=== PATIENT | female | born 1940 | race Caucasian/White ===

== ENCOUNTER 2016-09-06 15:14 | Observation (INO) ==
[2016-09-06 15:43] LABS: Basophils % 0.4 %; Eosinophils # 0.3 K/mcL (0.0-0.6); Hematocrit 41.5 % (35.3-44.9); Hemoglobin 13.4 g/dL (11.5-15.4); Immature Granulocytes % 0.6 % (0-4); Lymphocytes # 1.3 K/mcL (0.6-4.6); Lymphocytes % 19.1 %; Mean Corpuscular HGB Conc 32.3 g/dL (31.6-35.5); Mean Corpuscular Hemoglobin 29.4 pg (28.0-33.3); Mean Platelet Volume 11.1 fL (9.4-12.4); Monocytes # 0.5 K/mcL (0.0-1.3); Monocytes % 6.8 %; Neutrophils # 4.7 K/mcL (1.6-8.9); Platelet Count 213 K/mcL (140-400); Red Blood Count 4.56 M/mcL (3.82-4.97); Red Cell Distribution Width 14.3 % (11.5-14.5); Segmented Neutrophils % 69.1 %
[2016-09-06 15:48] LABS: Prothrombin Time 11.3 Seconds (9.4-12.1)
[2016-09-06 15:54] LABS: BUN/Creatinine Ratio 18 (6-26); Blood Urea Nitrogen 16 mg/dL (7-20); Calcium 10.3 mg/dL (8.6-10.8); Carbon Dioxide 26 mEq/L (19-29); Chloride 104 mEq/L (98-109); Glucose 110 mg/dL (70-99); Osmolality,Calculated 296 (280-300); Potassium 3.7 mEq/L (3.5-4.5); Sodium 142 mEq/L (136-145); eGFR For African Americans > 60 (> 60); eGFR For Non-African Americans > 60 (> 60)
--- NOTE | 2016-09-06 16:33 | Emergency Department Note ---
Disposition Clinical Impression: Blurred vision, right eye, Episodic lightheadedness, History of unsteady gait Pneumonia Qualifiers: Pneumonia type: due to unspecified organism Laterality: left Lung location: lower lobe of lung Qualified Code(s): J18.1 - Lobar pneumonia, unspecified organism Disposition: Admitted As Inpatient Condition: Good Referrals: Alejandro,Karolina Taylor CNP [Primary Care Provider] - Time of Disposition: 17:45 General Adult HPI - General Stated complaint: Dizziness, Blurred vision Time Seen by Provider: 09/06/16 15:17 Source: patient Limitations: no limitations Nursing Notes Reviewed: Yes Vital Signs Reviewed: Yes - History of Present Illness HPI Narrative: patient planning of one hour history of right eye blurriness as well as lightheadedness when she is walking. Also an unsteady gait. Denies any headaches. States this has happened several times over the past couple weeks but they have been short in duration. She cannot pinpoint an inciting factor other than they generally occur whenever she is ambulatory. The episodes do get better when she is laying at rest. She denies any pain. Pain Scale: 4 - Related Data Home Medications Medication Instructions Recorded Confirmed Albuterol Sulfate [Ventolin Hfa] 2 puff IH Q4H PRN 09/06/16 09/06/16 Budesonide/Formoterol 160/4.5 2 puff IH BIDR 09/06/16 09/06/16 [Symbicort 160/4.5] Lutein [Natural Lutein] 20 mg PO DAILY 09/06/16 09/06/16 Pantoprazole Sodium [Protonix] 40 mg PO DAILY 09/06/16 09/06/16 Simvastatin [Zocor] 80 mg PO HS 09/06/16 09/06/16 Previous Rx's Medication Instructions Recorded Aspirin Enteric Coated [Aspirin EC] 81 mg PO DAILY tablet. 01/18/16 Atenolol [Tenormin] 50 mg PO DAILY tablet 01/18/16 Clopidogrel [Plavix] 75 mg PO DAILY tablet 01/18/16 FLUoxetine HCl [Prozac] 20 mg PO DAILY capsule 01/18/16 Vitamin B Complex/Vit C/Vit E 1 each PO DAILY tablet 01/18/16 [Stresstab] hydroCHLOROthiazide 12.5 mg PO DAILY tablet 01/18/16 [Hydrochlorothiazide] Allergies Allergy/AdvReac Type Severity Reaction Status Date / Time No Known Allergies Allergy Verified 10/19/15 11:59 All systems ED: reviewed and negative except as stated. Constitutional: Denies: fever, chills Eyes: Reports: vision change (Distant blurry vision in right eye.). Denies: eye pain, eye discharge ENT ED: Reports: other (Clear rhinorrhea.) Cardiovascular: Denies: chest pain, palpitations, dyspnea on exertion, syncope Respiratory: Denies: cough, dyspnea, wheezes, hemoptysis Gastrointestinal: Denies: abdominal pain, nausea, vomiting, diarrhea, hematemesis, melena, hematochezia Genitourinary: Denies: urgency, dysuria, frequency, hematuria, dyspareunia Musculoskeletal: Denies: back pain, neck pain Integumentary: Denies: rash, abrasion Neurological: Reports: weakness (Lightheadedness), abnormal gait (Unsteady gait) . Denies: headache, numbness, paresthesias, confusion, vertigo (Denies the room spinning. Denies worsening of her lightheadedness with position changes or turning her head.) Past Medical History - Past Medical History Attestation: Yes The following information was validated with the patient. Medical history: Reports: arthritis, coronary artery disease, CVA, GERD, hyperlipidemia, hypertension Surgical history: Reports: orthopedic, other Psychiatric history: Reports: anxiety, depression GEM SETTER history: Reports: no GEM SETTER history - Social History Smoking Status: Never smoker Smokeless Tobacco Status: No Alcohol use: Reports: rarely Drug use: Reports: none Physical Exam - General Limitations: no limitations General appearance: alert, in no apparent distress - Head Head exam: atraumatic, normocephalic, normal inspection - Eye Eye exam: Present: normal appearance, PERRL, EOMI, other (Patient does have a horizontal and lateral nystagmus. She has normal vision guerra. No visual field deficits. Denies blurry vision on close exam.). Absent: scleral icterus - ENT ENT exam: normal exam, normal oropharynx, mucous membranes moist, normal external ear exam - Neck Neck exam: Present: normal inspection, full ROM, trachea midline. Absent: tenderness, meningismus, lymphadenopathy - Chest Chest inspection: Present: normal inspection, symmetric chest wall rise. Absent : tenderness, rash, abscess - Respiratory Respiratory exam: Present: normal lung sounds bilaterally. Absent: respiratory distress - Cardiovascular Cardiovascular exam: Present: regular rate, normal rhythm, normal heart sounds - Abdominal Exam Abdominal exam: Present: soft, Non-Tender, normal bowel sounds. Absent: tenderness, distention, guarding, rebound, rigidity, organomegaly - Extremities Exam Extremities exam: Present: normal inspection, full ROM, normal capillary refill , other (No neuro deficits. Strong movement in all 4 extremities.). Absent: tenderness, pedal edema - Back Exam Back exam: Present: normal inspection, full ROM. Absent: tenderness, CVA tenderness (R), CVA tenderness (L) - Neurological Exam Neurological exam: Present: alert, oriented X3, CN II-XII intact. Absent: motor sensory deficit - Psychiatric Psychiatric exam: Present: normal affect, normal mood - Skin Skin exam: Present: warm, dry, intact, normal color. Absent: rash, cyanosis, diaphoresis, erythema Course Course Narrative: Female patient brought to the emergency department with a 1 hour history of unsteady gait and blurry distance vision in her right eye. 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 She reports that the symptoms happened for a brief period of time over the past week however this time the symptoms have not resolved. The patient is alert and oriented 3 and in no distress. She is mentating appropriately. She has no neurologic deficits. She has full range of motion and strong strength in all 4 extremities. She can track with her eyes well however she does have a vertical and horizontal nystagmus. She reports rhinorrhea. She states everyone at her home has this currently. She also reports that earlier today she noticed her blood pressure was elevated at home. She is in the 150s systolic at this time. Her lung sounds are clear her heart sounds are normal and her abdomen is soft and nontender. Her pupils are reactive to light. She does not have any hemianopsia. Her peripheral vision is normal. Patient does have a history of prior CVA several years ago. She is also reporting that she fell approximately 3 weeks ago and struck her head. Has a loss of consciousness with that. She states she was not checked out for the fall. She is on anticoagulation. She takes Plavix and aspirin daily. We will get a head CT of the patient as well as basic lab workup and a chest x-ray. - Reevaluation(s) Reevaluation #1: Patient was reevaluated. She states that her lightheadedness as well as her blurry vision is resolved at this time. She is reporting that she has noticed that every time this begins as when she is up moving around. We are going to get an MRI patient's head due to her symptoms that are waxing and waning and now lasting longer. She also has a left lower lobe pneumonia. We will begin treatment with this with IV antibiotics. We plan to admit the patient to the hospital for her intermittent neurological symptoms as well as her pneumonia. On her head CT did show an old infarct. However there are no signs of new ischemia or bleeding. She does take aspirin and Plavix at home. She states she does not take her aspirin until evening and has not had it today. We will give her full dose aspirin she is here. Time: 16:47 - Consultations Consultation #1: Patient accepted by nurse practitioner Uzma and stable condition. Time: 17:38 Vital Signs Temperature 98.7 F 09/06/16 15:19 Pulse Rate 58 09/06/16 15:19 Respiratory Rate 16 09/06/16 15:19 Blood Pressure 159/96 09/06/16 15:19 O2 Sat by Pulse Oximetry 97 09/06/16 15:19 Temperature 98.7 F 09/06/16 15:19 Pulse Rate 58 09/06/16 17:13 Respiratory Rate 16 09/06/16 17:13 Blood Pressure 145/74 09/06/16 17:13 O2 Sat by Pulse Oximetry 97 09/06/16 17:13 Oxygen Delivery Oxygen Delivery Room Air Medical Decision Making - Medical Records Medical records reviewed: Yes I reviewed the patient's medical records. - Lab Data Lab results reviewed: Yes I reviewed the patient's lab results. Result diagrams: 09/06/16 15:34 09/06/16 15:34 Lab Results 09/06/16 09/06/16 09/06/16 Range/Units 15:34 15:34 15:34 WBC 6.8 (4.3-11.1) K/mcL RBC 4.56 (3.82-4.97) M/mcL Hgb 13.4 (11.5-15.4) g/dL Hct 41.5 (35.3-44.9) % MCV 91.0 (83.0-100.0) fL MCH 29.4 (28.0-33.3) pg MCHC 32.3 (31.6-35.5) g/dL RDW 14.3 (11.5-14.5) % Plt Count 213 (140-400) K/mcL MPV 11.1 (9.4-12.4) fL Immature Gran % 0.6 (0-4) % Seg Neutrophils % 69.1 % Lymphocytes % 19.1 % Monocytes % 6.8 % Eosinophils % 4.0 % Basophils % 0.4 % Neutrophils # 4.7 (1.6-8.9) K/mcL Lymphocytes # 1.3 (0.6-4.6) K/mcL Monocytes # 0.5 (0.0-1.3) K/mcL Eosinophils # 0.3 (0.0-0.6) K/mcL Basophils # 0.0 (0.0-0.2) K/mcL PT 11.3 (9.4-12.1) Seconds INR 1.0 Sodium 142 (136-145) mEq/L Potassium 3.7 (3.5-4.5) mEq/L Chloride 104 (98-109) mEq/L Carbon Dioxide 26 (19-29) mEq/L BUN 16 (7-20) mg/dL Creatinine 0.88 (0.57-1.11) mg/dL Est GFR ( Amer) > 60 (> 60) Est GFR (Non-Af Amer) > 60 (> 60) BUN/Creatinine Ratio 18 (6-26) Glucose 110 H (70-99) mg/dL Calculated Osmolality 296 (280-300) Calcium 10.3 (8.6-10.8) mg/dL Troponin I (0-0.03) ng/mL 09/06/16 Range/Units 15:34 WBC (4.3-11.1) K/mcL RBC (3.82-4.97) M/mcL Hgb (11.5-15.4) g/dL Hct (35.3-44.9) % MCV (83.0-100.0) fL MCH (28.0-33.3) pg MCHC (31.6-35.5) g/dL RDW (11.5-14.5) % Plt Count (140-400) K/mcL MPV (9.4-12.4) fL Immature Gran % (0-4) % Seg Neutrophils % % Lymphocytes % % Monocytes % % Eosinophils % % Basophils % % Neutrophils # (1.6-8.9) K/mcL Lymphocytes # (0.6-4.6) K/mcL Monocytes # (0.0-1.3) K/mcL Eosinophils # (0.0-0.6) K/mcL Basophils # (0.0-0.2) K/mcL PT (9.4-12.1) Seconds INR Sodium (136-145) mEq/L Potassium (3.5-4.5) mEq/L Chloride (98-109) mEq/L Carbon Dioxide (19-29) mEq/L BUN (7-20) mg/dL Creatinine (0.57-1.11) mg/dL Est GFR ( Amer) (> 60) Est GFR (Non-Af Amer) (> 60) BUN/Creatinine Ratio (6-26) Glucose (70-99) mg/dL Calculated Osmolality (280-300) Calcium (8.6-10.8) mg/dL Troponin I 0.00 (0-0.03) ng/mL - Radiology Data Radiology results reviewed: Yes I reviewed the patient's radiology results. Chest X-Ray 09/06/16 15:32 IMPRESSION: Left lower lobe pneumonia. Recommend follow-up imaging to confirm resolution. Cardiomegaly without evidence for edema D/ / Jefferson Rodríguez MD / Jefferson Rodríguez MD Interpreting Provider: Jefferson Rodríguez MD Head CT 09/06/16 15:32 IMPRESSION: No acute intracranial abnormality. Old left frontal lobe infarct D/ / Ronaldo Wilkinson MD / Ronaldo Wilkinson MD Interpreting Provider: Ronaldo Wilkinson MD - EKG Data EKG #1 EKG results narrative: Patient's EKG is interpreted by myself without benefit of formal cardiology interpretation showing a sinus bradycardia at [address] or T-wave changes are appreciated. There is no old EKG for comparison. Attestation Statement - Attestation Attestation: I personally interviewed and examined this patient and my medical decision- making was reviewed with the ED Resident Physician, Dr. Sales I agree with the documented findings, disposition and treatment plan as described except to the extent set forth below. Patient is a 76-year-old white female with a history of prior CVA, and multiple medical problems who presents to the emergency department today with a complaint of a one-hour history of transient lightheadedness as well as blurred vision in her right eye. 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 Patient states she is usually active and doing something at the time that the lightheadedness starts she should initially in a standing position with no recent positional changes. She states earlier in the week she was at [facility] in a garden area getting plants and felt lightheaded to the point that she had to sit down until the symptoms resolved. Patient states that it lasted for minutes and with no other associated symptoms. She had no blurred vision no acute neurologic changes no facial droop slurred speech extremity weakness or numbness. Patient states then she had another episode a few days ago very similar to the initial episode. Then today prior to arrival she went golfing with family member in about [address] she began experiencing some lightheadedness again which she states with rest goes away. She denies any symptoms of chest pain pressure or heaviness no shortness of breath no diaphoresis no nausea vomiting. She does not have any true vertigo spinning sensation and it is not worse with positional changes or head turning. The symptoms started very suddenly and acutely and then seemed to slowly resolve with rest. On arrival here to the emergency Department patient states the lightheadedness is much improved but she has been resting and she says she feels like her vision is also improved at this point in time. She denies any headache or tinnitus associated with these symptoms. I agree with patient's physical exam findings as documented. Patient's EKG showed no acute findings. Patient had an IV saline well-established placed on stock crane operator and pulse ox and was evaluated with labs, chest x-ray, and head CT. Surprisingly the chest x-ray does show a new left lower lobe pneumonia. On reevaluation of the patient and her serial neuro exams remained unchanged and currently she is asymptomatic with no blurred vision or current lightheadedness. NIH stroke scale on arrival equals 0. I asked the patient about any preceding respiratory symptoms cold or cough and she denies any symptoms outside of some fatigue. No ill contacts. At this time we went ahead and obtained blood cultures and started IV antibiotics and head CT was unremarkable with the exception of old changes from her prior stroke. At this time, unclear whether or not these transient lightheaded episodes could be due to an underlying pulmonary illness versus new neurologic symptoms for her first is cardiac etiology. At this time we recommended admission for further evaluation and clarification of the source of these episodes of near- syncope. Patient currently is hemodynamically stable, and asymptomatic at bedside.
[2016-09-06] MEDS ORDERED: Azithromycin 500 MG in D5% in Water 250 ML IVPB ONE (16:40)
[2016-09-06] MEDS ORDERED: Aspirin 81 MG TAB.CHEW PO ONE (16:48)
[2016-09-06] MEDS ORDERED: Acetaminophen 325 MG TABLET PO PRN (21:08)
[2016-09-06] MEDS ORDERED: *HR* HYDROcodone/Acet 5/325 mg TABLET PO PRN (21:08)
[2016-09-06] MEDS ORDERED: Naloxone 0.4 MG/ML INJ IVP PRN (21:08)
[2016-09-06] MEDS ORDERED: Ondansetron 4 MG/2 ML VIAL IVP PRN (21:08)
[2016-09-06] MEDS ORDERED: *HR* Morphine 2 MG/ML SYRINGE IVP PRN (21:08)
--- NOTE | 2016-09-06 21:20 | Internal Med History&Physical ---
<Tony Britt - Last Filed: 09/06/16 21:59> Date of Encounter: 09/06/16 Time of Encounter: 21:00 Assessment and Plan (1) History of CVA (cerebrovascular accident) Current visit: Yes Status: Suspected Assess: Mrs. Durham presents with chief complaint of blurry vision in right eye, lightheadedness, and unsteady gait which is more pronounced than usual. Patient reports similar episodes on and off but states they always resolve as this one did. Mrs. Durham denies chest pain, headache, weakness to extremities, loss of motor function, or SOB. Diagnosis for possible TIAs. Plan: Trend troponins x2 ESR and CRP ordered to assess for possible temporal arteritis EV echocardiogram ordered Continue aspirin Continue Plavix Bilateral carotid Doppler duplex imaging ordered Continuous cardiac telemetry ordered D-dimer ordered stat Neurological assessment ordered Q2HR Falls precautions/bed rest/[id number]-[id number] ordered (2) Pneumonia Current visit: Yes Status: Acute Assess: Patient presents to ED today (09/06/16) with complaints of lightheadedness, unsteady gait, and blurry vision. Chest x-ray in ED shows left lower lobe pneumonia with recommended follow-up imaging to confirm resolution as well as cardiomegaly without evidence for edema. Plan: IVPB Azithromycin 500 mg daily ordered. First dose administered in ED. IVPB ceftriaxone 1,000 mg daily ordered. First dose administered in ED. Follow-up labs ordered Blood/urine cultures ordered Qualifiers: Pneumonia type: due to Pneumococcus Laterality: left Lung location: lower lobe of lung Qualified Code(s): J13 - Pneumonia due to Streptococcus pneumoniae (3) Blurred vision, right eye Current visit: Yes Status: Acute Assess: Patient presents with complaint of blurry vision in right eye without floaters, flashing lights, or total loss of vision. Patient reports symptoms have resolved as with previous incident. Plan: Neurological examination and eye exam performed at bed side unremarkable. Neurological assessment ordered Q2HR (4) Episodic lightheadedness Current visit: Yes Status: Acute Assess: Patient presents with complaint of episodic lightheadedness which is resolved as in previous incidents. Plan: Blood glucose monitoring to assess for hypoglycemic episodes A1C ordered Neurological assessment ordered every 2 hours Continuous cardiac telemetry ordered Falls precautions ordered Bedrest with bathroom privileges with assist only ordered Up with assist only PT consult ordered OT consult ordered Monitor patient (5) History of unsteady gait Current visit: Yes Status: Chronic Assess: Patient presents with complaint of history of unsteady gait. Plan: Blood glucose monitoring to assess for hypoglycemic episodes Neurological assessment ordered every 2 hours Falls precautions ordered Bedrest with bathroom privileges with assist only ordered Up with assist only PT consult ordered OT consult ordered Monitor patient (6) HTN (hypertension) Current visit: Yes Status: Chronic Assess: Patient presents with history of chronic hypertension. Plan: Continue hydrochlorothiazide Monitor patient and vital signs Qualifiers: Hypertension type: essential hypertension Qualified Code(s): I10 - Essential (primary) hypertension (7) Hyperlipidemia Current visit: Yes Status: Chronic Assess: Patient presents with history of chronic hyperlipidemia. Plan: Plan simvastatin Add Crestor 20 mg daily while inpatient Lipid panel ordered Qualifiers: Hyperlipidemia type: unspecified Qualified Code(s): E78.5 - Hyperlipidemia , unspecified (8) DVT prophylaxis Current visit: Yes Status: Acute Assess: Patient placed on DVT prophylaxis due to admission protocol and bedrest status. Plan: Continue aspirin therapy Lovenox 30 mg SQ daily Internal Medicine - H&P: HPI Chief complaint: Lightheadedness/blurry vision/unsteady gait Admitted From: Emergency Dept Plans for Post Hospital Care: Home History of present illness: Mrs. Durham is a 76 year old female who presents from the ED with chief complaint of blurry vision in right eye, lightheadedness, and unsteady gait which is more pronounced than usual. Patient reports similar episodes on and off but states they always resolve as this one did. Patient denies headache, chest pain, recent illness, generalized weakness, nausea, vomiting, diarrhea, shortness of breath with and without exertion, fatigue, or malaise. Patient has a history of arthritis, CAD, CVA in 1991, GERD, HLD, HTN, but denies diabetes although she feels she may become hypoglycemic at times. Upon examination in the ED today (09/06/16), chest x-ray reveals left lower lobe pneumonia with recommendation to follow-up with imaging to confirm resolution as well as cardiomegaly without evidence for edema. Patient is at moderate risk due to current risk factors of hyperlipidemia, hypertension, CAD, and previous CVA. Patient be placed his observation status with orders to trend troponins 2, ESR and CRP for possible temporal arteritis, continuous cardiac telemetry, supplemental O2 with SPO2 monitoring, EV echocardiogram, bilateral carotid Doppler duplex imaging, lipid panel, and A1c. We will hold patient's simvastatin and replaced with Crestor 20 mg while inpatient. Patient is to be placed his falls precautions, up with assist only, and bedrest with bathroom privileges with assist only. Blood glucose monitoring to be performed every 6 due to patient's concerns about hypoglycemia. Time spent with patient greater than 40 minutes. Past Med Surg Social Fam HX - Past Medical History Source: patient Medical history: arthritis, coronary artery disease, CVA, GERD, hyperlipidemia, hypertension Psychiatric history: anxiety, depression - Past Surgical History Surgical History: cholecystectomy, orthopedic, other (Meniscus repair of left knee, macular surgeries on left eye, sebaceous cyst removed from left chest) - Social History Smoking Status: Never smoker Smokeless Tobacco Status: No Alcohol use: rarely Drug use: none Occupational status: retired Current living situation: Home, With Family Activity Level: Independent ambulation Recent Out of Country Travel Within the Last 8 Weeks: No Exposure or Possible Exposure to Illness During Travel: No - Family History Father Race: Family Member Ethnicity: Non- Living Status: Age at : 82 Hx Family Cardiac Disorders: Yes (NC, HD) Hx Family Neurologic Disorders: Yes (Alzheimer's disease) Mother Race: Family Member Ethnicity: Non- Living Status: Age at : 74 Cause of : Stroke Hx Family Cardiac Disorders: Yes (Stroke, HD) Brother Race: Family Member Ethnicity: Non- Living Status: Age at : 39 Cause of : NC Hx Family Cardiac Disorders: Yes (NC) Sister Race: Family Member Ethnicity: Non- Living Status: Still Living Hx Family Cardiac Disorders: Yes (HLD) Internal Medicine - H&P: Meds Aspirin Enteric Coated [Aspirin EC] 81 mg PO DAILY tablet. 01/18/16 [Rx] Atenolol [Tenormin] 50 mg PO DAILY tablet 01/18/16 [Rx] Clopidogrel [Plavix] 75 mg PO DAILY tablet 01/18/16 [Rx] FLUoxetine HCl [Prozac] 20 mg PO DAILY capsule 01/18/16 [Rx] Vitamin B Complex/Vit C/Vit E [Stresstab] 1 each PO DAILY tablet 01/18/16 [Rx] hydroCHLOROthiazide [Hydrochlorothiazide] 12.5 mg PO DAILY tablet 01/18/16 [Rx] Albuterol Sulfate [Ventolin Hfa] 2 puff IH Q4H PRN 09/06/16 [History] Budesonide/Formoterol 160/4.5 [Symbicort 160/4.5] 2 puff IH BIDR 09/06/16 [ History] Lutein [Natural Lutein] 20 mg PO DAILY 09/06/16 [History] Pantoprazole Sodium [Protonix] 40 mg PO DAILY 09/06/16 [History] Simvastatin [Zocor] 80 mg PO HS 09/06/16 [History] Allergies No Known Allergies Allergy (Verified 10/19/15 11:59) All Systems PM: A 10-system review of systems was performed and is negative for pertinent findings except as documented above in the HPI. - Constitutional Constitutional: no chills, no fever(s), no night sweats - EENT Eyes: as per HPI, blurry vision (Right eye) Ears: no ear discharge, no ear pain, no tinnitus Nose, mouth and throat: no dysphagia, no nasal discharge, no neck pain, no sore throat - Cardiovascular Cardiovascular ROS IM: as per HPI, lightheadedness, no chest pain, no diaphoresis, no dyspnea, no palpitations, no syncope - Respiratory Respiratory: no cough, no dyspnea, no wheezing, no excessive phlegm production - Gastrointestinal Gastrointestinal: no abdominal pain, no diarrhea, no hematemesis, no hematochezia, no melena, no nausea, no vomiting - Genitourinary Genitourinary: as per HPI Menstruation: as per HPI - Musculoskeletal Musculoskeletal ROS IM: no numbness, no tingling - Integumentary Integumentary IM: no rash, no unusual bruising - Neurological Neurological ROS: as per HPI, abnormal gait, dizziness, loss of vision ( Blurriness in right eye w/o loss of vision), no confusion, no convulsions, no focal weakness, no numbness, no tingling, no tremor(s) - Psychiatric Psychiatric: as per HPI - Endocrine Endocrine IM: as per HPI - Hematologic/Lymphatic Hematologic/Lymphatic: no easy bruising - Allergic/Immunologic Allergic/Immunologic: as per HPI - Constitutional Vitals: Temp Pulse Resp BP Pulse Ox 97.7 F 55 18 149/96 98 09/06/16 20:52 06/20/17 20:52 09/06/16 20:52 09/06/16 20:52 09/06/16 20:52 General appearance: Present: cooperative, A&O X 3, pleasant, no acute distress, obese, answers questions appropriately - Head Head exam: Present: atraumatic, normocephalic - Eye Eye exam: Present: PERRL, conjuntiva pink, sclera anicteric Pupils: Present: PERRL - ENT ENT exam: Present: normal exam, normal external ear exam - Neck Neck exam general surgery: Present: supple, trachea midline. Absent: lymphadenopathy - Respiratory Respiratory exam: Present: CTAB. Absent: accessory muscle use, rales, rhonchi, wheezes - Cardiovascular Cardiovascular exam: Present: RRR, +S1, +S2. Absent: diastolic murmur, gallop, rubs, systolic murmur - GI/Abdominal GI/Abdominal exam: Present: normal bowel sounds, soft, no peritoneal signs. Absent: distended, tenderness - Rectal Rectal exam: Present: deferred - Additional comments: exam deferred. - Extremities Exam Extremities exam: Present: warm, radial pulses palpable and symetrical. Absent : calf tenderness, cyanotic, pedal edema - Back Exam Back exam: Present: normal inspection - Neurological Exam Neurological exam: Present: CN II-XII intact, oriented X3, no focal deficits. Absent: pronater drift, facial droop, speech deficit - Psychiatric Psychiatric exam: Present: normal affect, normal mood - Skin Skin exam: Present: dry, intact Internal Med - H&P Results - Labs CBC & Chem 7: 09/06/16 15:34 09/06/16 15:34 - EKG Data EKG shows normal: sinus rhythm Rate: bradycardia - EKG Data Prior EKG available for review: no - Diagnostic Studies MRI - head Additional comments: Impressions Brain MRI 09/06/16 16:35 IMPRESSION: 1. No acute intracranial abnormality. 2. Mild chronic white matter microvascular ischemic changes. 3. Remote high paramedian left frontal infarct in the left anterior cerebral artery territory. D/ / Faizan Johnson MD / Faizan Johnson MD Interpreting Provider: Faizan Johnson MD CT scan - head Additional comments: Impressions Head CT 09/06/16 15:32 IMPRESSION: No acute intracranial abnormality. Old left frontal lobe infarct D/ / Ronaldo Wilkinson MD / Ronaldo Wilkinson MD Interpreting Provider: Ronaldo Wilkinson MD Chest x-ray Additional comments: Impressions Chest X-Ray 09/06/16 15:32 IMPRESSION: Left lower lobe pneumonia. Recommend follow-up imaging to confirm resolution. Cardiomegaly without evidence for edema D/ / Jefferson Rodríguez MD / Jefferson Rodríguez MD Interpreting Provider: Jefferson Rodríguez MD <Bruno Mohr - Last Filed: 09/06/16 22:44> Date of Encounter: 09/06/16 Internal Medicine - H&P: HPI History of present illness: Ms. Durham is a 76 year old female All Systems PM: A 10-system review of systems was performed and is negative for pertinent findings except as documented above in the HPI. - Constitutional Vitals: Temp Pulse Resp BP Pulse Ox 97.7 F 55 20 149/96 86 09/06/16 20:52 09/06/16 20:52 09/06/16 22:01 09/06/16 20:52 09/06/16 22:01 Internal Med - H&P Results - Labs CBC & Chem 7: 09/06/16 15:34 09/06/16 15:34 Labs: Cardiac Enzymes 09/06/16 Range/Units 21:47 Troponin I 0.01 (0-0.03) ng/mL - Attending Attestation I examined this patient and my medical decision-making was reviewed with the DREDGE PIPE OPERATOR/PA/Advanced Practice Nurse/Resident Physician. I agree with the documented findings, disposition and treatment plan as described except to the extent set forth below. 76-year-old female presents to the emergency department due to one- week history of intermittent dizziness which she describes as a sensation of feeling out of balance. This started getting worse today and hence, she presented to the emergency room. She also reports a one-month history of stumbling where she states that she has been running into things it is unusual for her. She feels like the loss of balance is more towards the right side. She denies any ringing in her years, pain in her ears or sore throat. She denies any headache. She reports some nausea that she developed after receiving antibiotics in the emergency room. She denies any shortness of breath , cough, sputum production, wheezing, fever, chills, chest pain or palpitations. On exam, patient has horizontal nystagmus in both her eyes. Power is 5/5 all over. Finger nose finger test is intact. No dysdiadochokinesia. Clear breath sounds bilaterally. No adventitious sounds present. First and second heart sounds present. Labs reviewed. MRI does not reveal any acute infarct. It reveals an old left frontal lobe infarct. Vertigo was reproducible when the patient was made to sit up. Assessment/plan: 1. Vertigo-suspect TIA. Will request neurology consult. Echocardiogram and carotid Dopplers. Aspirin, Plavix and statin. 2. Patient does not have pneumonia-patient does not have fever, chills, shortness of breath, cough or wheezing. Clear breath sounds bilaterally. We will hold off antibiotics and monitor the patient. 3. Prior history of CVA. RAFAL Ríos
[2016-09-06 21:29] LABS: C-Reactive Protein 1 mg/L (Less than 5)
[2016-09-06 21:41] LABS: Hemoglobin A1C 5.9 %
[2016-09-06] MEDS: Budesonide/Formoterol 160/4.5 MDI IH SCH (22:01)
[2016-09-07 05:16] LABS: Bilirubin,Urine Negative (Negative); Blood,Urine Negative (Negative); Clarity,Urine Clear (Clear); Color,Urine Yellow (Yellow); Glucose,Urine (UA) Normal (Normal); Ketones,Urine Negative (Negative); Leukocyte Esterase,Urine Small (Negative); Nitrite,Urine Negative (Negative); Protein,Urine Negative (Neg-Trace); Specific Gravity,Urine 1.021 (1.010-1.025); Urobilinogen,Urine Normal (Normal)
[2016-09-07 05:19] LABS: Bacteria,Urine None Seen per hpf (None-Few); Hyaline Casts,Urine None Seen per lpf (None-Few); Squamous Epithelial Cell,Urine Many per lpf (None-Few)
[2016-09-07] MEDS: *HR* Enoxaparin 40 MG/0.4 ML SYRINGE SQ SCH (05:40)
[2016-09-07 07:26] LABS: Basophils % 0.3 %; Eosinophils # 0.3 K/mcL (0.0-0.6); Eosinophils % 4.1 %; Hematocrit 40.2 % (35.3-44.9); Hemoglobin 12.9 g/dL (11.5-15.4); Immature Granulocytes % 0.4 % (0-4); Lymphocytes # 1.6 K/mcL (0.6-4.6); Lymphocytes % 21.6 %; Mean Corpuscular HGB Conc 32.1 g/dL (31.6-35.5); Mean Corpuscular Hemoglobin 29.8 pg (28.0-33.3); Mean Corpuscular Volume 92.8 fL (83.0-100.0); Mean Platelet Volume 11.9 fL (9.4-12.4); Monocytes # 0.5 K/mcL (0.0-1.3); Monocytes % 6.5 %; Neutrophils # 5.1 K/mcL (1.6-8.9); Platelet Count 194 K/mcL (140-400); Red Blood Count 4.33 M/mcL (3.82-4.97); Red Cell Distribution Width 14.4 % (11.5-14.5); Segmented Neutrophils % 67.1 %
[2016-09-07 07:28] LABS: INR 1.1; Prothrombin Time 11.9 Seconds (9.4-12.1)
[2016-09-07 07:31] LABS: Activated Partial Thrombo Time 27.1 Seconds (26.0-36.0)
[2016-09-07 07:49] LABS: Alanine Aminotransferase 12 Units/L (0-55); Albumin 3.7 g/dL (3.5-5.0); Albumin/Globulin Ratio 1.3 (1.1-2.2); Alkaline Phosphatase 71 Units/L (38-126); Aspartate Amino Transferase 20 Units/L (5-34); BUN/Creatinine Ratio 13 (6-26); Bilirubin,Total 1.2 mg/dL (0.2-1.2); Blood Urea Nitrogen 12 mg/dL (7-20); Calcium 9.8 mg/dL (8.6-10.8); Carbon Dioxide 31 mEq/L (19-29); Chloride 102 mEq/L (98-109); Chol/HDL Ratio 2.9 (0-4.9); Cholesterol 174 mg/dL (< 200); Globulin 2.8 g/dL (2.4-3.5); Glucose 94 mg/dL (70-99); HDL Cholesterol 61 mg/dL (40-59); LDL Cholesterol,Calculated 87 mg/dL (0-99); Magnesium 1.5 mg/dL (1.6-2.6); Osmolality,Calculated 292 (280-300); Potassium 3.6 mEq/L (3.5-4.5); Sodium 141 mEq/L (136-145); Total Protein 6.5 g/dL (6.0-8.3); Triglycerides 129 mg/dL (< 150); eGFR For African Americans > 60 (> 60); eGFR For Non-African Americans > 60 (> 60)
[2016-09-07] MEDS: (Lutein [Natural Lutein] 20 MG) PO SCH (08:06)
[2016-09-07] MEDS: Aspirin Enteric Coated 81 MG Tablet PO SCH (08:07)
[2016-09-07] MEDS: FLUoxetine 20 MG CAPSULE PO SCH (08:07)
[2016-09-07] MEDS: Vitamin B Complex/Vit C/Vit E 1 EACH TABLET PO SCH (08:07)
[2016-09-07] MEDS: Budesonide/Formoterol 160/4.5 MDI IH SCH ×2 (08:57→19:54)
[2016-09-07] MEDS ORDERED: hydroCHLOROthiazide 25 MG TABLET PO SCH (09:00)
[2016-09-07] MEDS ORDERED: Pantoprazole 40 MG VIAL IVP SCH (09:00)
--- NOTE | 2016-09-07 11:13 | Neurology - Consult Note ---
<Lloyd Porter - Last Filed: 09/07/16 10:55> Date of Encounter: 09/07/16 Time of Encounter: 10:30 Assessment and Plan (1) CVA (cerebral vascular accident) Current Visit: Yes Status: Acute Patient has mild right-sided weakness. Per patient she states her weakness is better today than it was 1 day ago. Patient's blurred vision resolved. No sense of vertigo or lightheadedness at time of exam. Patient states she still has a headache. High possibility of CVA given MRI results Head CT 09/06/16 15:32 IMPRESSION: No acute intracranial abnormality. Old left frontal lobe infarct D/ / Ronaldo Wilkinson MD / Ronaldo Wilkinson MD Interpreting Provider: Ronaldo Wilkinson MD Brain MRI 09/06/16 16:35 IMPRESSION: 1. No acute intracranial abnormality. 2. Mild chronic white matter microvascular ischemic changes. 3. Remote high paramedian left frontal infarct in the left anterior cerebral artery territory. D/ / Faizan Johnson MD / Faizan Johnson MD Interpreting Provider: Faizan Johnson MD Patient had carotid Doppler today. Awaiting results: Recommendations follow History of Present Illness Chief complaint: Lightheadedness and blurred vision HPI: Ms. Durham is a 76 year old female with a past medical history for CAD, CVA back in 1991, actually, HTN, GERD. Consults for vertigo and blurred vision. Patient states that yesterday she had change in vision blurriness and lightheadedness but the patient denies any sense of room spinning. Patient also states that she noticed drifting to the right with walking. Patient's at bedside also noticed right-sided drift with walking. Patient states just felt weak with lightheadedness and also has onset of headache left frontal area of her head, and her stated that she usually will have these episodes at times but will resolve with food. He attributed to being hypoglycemic. After eating, symptoms did not resolve. Upon further investigation patient's said she fell and hit her head and upper frontal area near her hairline on a rock while out doing some hiking. They both denied loss of consciousness and any other injuries. Patient is on Plavix. Today the patient states that her visual acuity has improved and she can see clearly now. Patient states that she has chronic issue with the right pupil and only has peripheral vision in the right eye. Patient states her headache is still present in the area previously described. Patient describes headache as dull aching pain left frontal area with radiation around to the right extending to the back and back of the left side to the front. Past Med Surg Social Fam HX - Past Medical History Attestation: Yes The following information was validated with the patient. Source: patient Medical history: arthritis, coronary artery disease, CVA, GERD, hyperlipidemia, hypertension Psychiatric history: anxiety, depression - Past Surgical History Surgical History: cholecystectomy, orthopedic, other (Meniscus repair of left knee, macular surgeries on left eye, sebaceous cyst removed from left chest) - Social History Smoking Status: Never smoker Smokeless Tobacco Status: No Alcohol use: rarely Drug use: none - Family History Mother Race: Family Member Ethnicity: Non- Living Status: Age at : 74 Cause of : Stroke Hx Family Cardiac Disorders: Yes (Stroke, HD) Brother Race: Family Member Ethnicity: Non- Living Status: Age at : 39 Cause of : [place] Hx Family Cardiac Disorders: Yes ([place]) Sister Race: Family Member Ethnicity: Non- Living Status: Still Living Hx Family Cardiac Disorders: Yes (HLD) Father Race: Family Member Ethnicity: Non- Living Status: Age at : 82 Hx Family Cardiac Disorders: Yes ([place], HD) Hx Family Neurologic Disorders: Yes (Alzheimer's disease) Medications and Allergies Aspirin Enteric Coated [Aspirin EC] 81 mg PO DAILY tablet. 01/18/16 [Rx] Atenolol [Tenormin] 50 mg PO DAILY tablet 01/18/16 [Rx] Clopidogrel [Plavix] 75 mg PO DAILY tablet 01/18/16 [Rx] FLUoxetine HCl [Prozac] 20 mg PO DAILY capsule 01/18/16 [Rx] Vitamin B Complex/Vit C/Vit E [Stresstab] 1 each PO DAILY tablet 01/18/16 [Rx] hydroCHLOROthiazide [Hydrochlorothiazide] 12.5 mg PO DAILY tablet 01/18/16 [Rx] Albuterol Sulfate [Ventolin Hfa] 2 puff IH Q4H PRN 09/06/16 [History] Budesonide/Formoterol 160/4.5 [Symbicort 160/4.5] 2 puff IH BIDR 09/06/16 [ History] Lutein [Natural Lutein] 20 mg PO DAILY 09/06/16 [History] Pantoprazole Sodium [Protonix] 40 mg PO DAILY 09/06/16 [History] Simvastatin [Zocor] 80 mg PO HS 09/06/16 [History] Allergies No Known Allergies Allergy (Verified 10/19/15 11:59) All Systems: A 10-system review of systems was performed and is negative for pertinent findings except as documented above in the HPI. - Constitutional Constitutional ROS IM: headache(s), weakness, no frequent falls - Eyes Eyes: bilateral: blurred vision - Nose, Mouth, Throat Nose, mouth and throat: disequilibrium - Cardiovascular Cardiovascular ROS IM: dyspnea on exertion (Chronic), lightheadedness, no chest pain, no chest pain at rest, no chest pain with activity - Respiratory Respiratory IM: no cough, no hemoptysis, no wheezing, no chest congestion - Gastrointestinal Gastrointestinal: no abdominal pain, no change in bowel habits, no hematemesis, no hematochezia, no melena, no nausea - Genitourinary Genitourinary ROS: no dysuria, no flank pain, no hematuria, no urinary incontinence - Musculoskeletal Musculoskeletal ROS IM: abnormal gait - Integumentary Integumentary IM: no photosensitivity, no unusual bruising, no wounds - Neurological Neurological ROS: abnormal gait, abnormal speech (From prior CVA), headache(s) - Hematologic/Lymphatic Hematologic/Lymphatic pediatric: no easy bleeding, no easy bruising Physical Examination - Vital Signs Vital Signs: Initial Vital Signs Temp Pulse Resp BP Pulse Ox 98.7 F 58 16 159/96 97 09/06/16 15:19 09/06/16 15:19 09/06/16 15:19 09/06/16 15:19 09/06/16 15:19 - Exam Exam: -General Appearance: Patient is a safe 76-year-old female who is alert and oriented 3 and in no acute distress. Patient appears very comfortable on the pleasant to converse with. Patient has no verbalizations, no facial drooping, no dysarthric speech -Neurological exam: Cranial nerves III-XII intact, no focal deficits observed, strength is slightly diminished on the right side upper and lower extremity with lower extremity weakness greater than upper extremity. 4/5 right lower extremity compared to 5/5 left lower extremity 4.5/5 right upper extremity versus 5/5 left upper extremity, cerebellar motion test negative patient and perform alternating movements with right hand and left and left hand and right, patient able to perform finger to nose and alternating movements both arms. Sensation equal bilaterally in upper and lower extremities and face. Reflexes upper and lower extremities 2/4 bilaterally. Negative loss of sensation. positive Babinski right foot. - Head Head exam: atraumatic, normocephalic, normal inspection - Eye Eye exam: Present: normal appearance, PERRL, EOMI, negative for scleral icterus negative for conjunctival pallor - ENT ENT exam: normal exam, normal oropharynx, mucous membranes moist - Neck Neck exam: Present: normal inspection, full ROM, trachea midline, negative JVD, negative for carotid bruit - Chest Chest inspection: Present: Patient has bilateral equal rise and fall of chest wall. Non-tender to palpation. - Respiratory Respiratory exam: Clear to auscultation bilaterally without wheezes rales or rhonchi Cardiovascular Cardiovascular exam: Present: regular rate, normal rhythm, normal heart sounds, without murmurs rubs or gallops. - Abdominal Exam Abdominal exam: Present: soft, nondistended, Non-Tender light and deep palpation in all quadrants. Bowel sounds normoactive throughout all 4 quadrants. Negative for hyper or hyperresonance. - Extremities Exam Extremities exam: Present: normal inspection, full ROM, pulses equal and regular bilaterally 2+ radials 2+ dorsal pedal - Back Exam Back exam: Present: normal inspection, full ROM. Absent: tenderness, CVA tenderness (R), CVA tenderness (L) - Psychiatric Psychiatric exam: Present: normal affect, normal mood - Skin Skin exam: Present: warm, dry, intact, normal color - Neurologic Reflexes: Biceps: 2+, Triceps: 2+, Brachioradialis: 2+, Patella: 2+, Achilles: 2 + Results - Laboratory Findings CBC and BMP: 09/07/16 05:56 09/07/16 05:56 Abnormal lab findings: Abnormal lab results ESR 20 mm/hr (0-15) H 09/06/16 15:34 Carbon Dioxide 31 mEq/L (19-29) H 09/07/16 05:56 POC Glucose 108 (58-89) H 09/06/16 15:22 Hemoglobin A1c 5.9 % (-5.6) H 09/06/16 15:34 Magnesium 1.5 mg/dL (1.6-2.6) L 09/07/16 05:56 B-Natriuretic Peptide 220 pg/mL (0-100) H 09/07/16 05:56 HDL Cholesterol 61 mg/dL (40-59) H 09/07/16 05:56 Ur Leukocyte Esterase Small (Negative) H 09/07/16 05:05 Urine Microscopic RBC 5-15 per hpf (0-3) H 09/07/16 05:05 Urine Microscopic WBC 3-5 per hpf (0-3) H 09/07/16 05:05 Ur Squamous Epith Cells Many per lpf (None-Few) H 09/07/16 05:05 Ur Culture Indicated? YES (NO) A 09/07/16 05:05 - Diagnostic Findings Additional findings: Chest X-Ray 09/06/16 15:32 IMPRESSION: Left lower lobe pneumonia. Recommend follow-up imaging to confirm resolution. Cardiomegaly without evidence for edema D/ / Jefferson Rodríguez MD / Jefferson Rodríguez MD Interpreting Provider: Jefferson Rodríguez MD Head CT 09/06/16 15:32 IMPRESSION: No acute intracranial abnormality. Old left frontal lobe infarct D/ / Ronaldo Wilkinson MD / Ronaldo Wilkinson MD Interpreting Provider: Ronaldo Wilkinson MD Brain MRI 09/06/16 16:35 IMPRESSION: 1. No acute intracranial abnormality. 2. Mild chronic white matter microvascular ischemic changes. 3. Remote high paramedian left frontal infarct in the left anterior cerebral artery territory. 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 Considerations to explain this might include presyncope, VBI, perhaps a primary ocular event involving the right eye. I would recommend CTA of the brain to assess for VBI. I don't believe that the findings idntified on the carotid doppler are pertinent here as she didn't have any localizing signs initially. 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 Risk factors include hypertension, HLD, and age. Maintain plavix, statins and antihypertensives. History of Present Illness HPI: Ms. Durham is a 76 year old female ho was seen for neurologic consultasual changes. She stated that she had been out golfing with her when the She states that it was not excessively hot at the time. She simply felt "dizzy" and complained of blurred vision. She has a long-standing problem with in her left eye due to macular degeneration. the entire episodes lasted for about 12 hours. she denies diplopia, denies diaphoresis, she admits to lightheadedness she denies feeling excessively hot. She denied headache. Denied nausea. She denies any numbness tingling or weakness of the face, arms or legs. She denies chest pain or SOB. Currently she feels back to her normal baseline. All Systems: A 10-system review of systems was performed and is negative for pertinent findings except as documented above in the HPI. Review of Systems: 10 point ROS is consistent with the hx of present illness and otherwise negative. Physical Examination - Vital Signs Vital Signs: Initial Vital Signs Temp Pulse Resp BP Pulse Ox 98.7 F 58 16 159/96 97 09/06/16 15:19 09/06/16 15:19 09/06/16 15:19 09/06/16 15:19 09/06/16 15:19 - Exam Exam: patient was seen and examined independently I agree with Dr. Porter's exam as stated above. Results - Laboratory Findings CBC and BMP: 09/08/16 04:22 09/08/16 04:22 Abnormal lab findings: Abnormal lab results MCHC 31.2 g/dL (31.6-35.5) L 09/08/16 04:22 ESR 20 mm/hr (0-15) H 09/06/16 15:34 Potassium 3.4 mEq/L (3.5-4.5) L 09/08/16 04:22 POC Glucose 108 (58-89) H 09/06/16 15:22 Hemoglobin A1c 5.9 % (-5.6) H 09/06/16 15:34 Magnesium 1.5 mg/dL (1.6-2.6) L 09/07/16 05:56 B-Natriuretic Peptide 220 pg/mL (0-100) H 09/07/16 05:56 HDL Cholesterol 61 mg/dL (40-59) H 09/07/16 05:56 Ur Leukocyte Esterase Small (Negative) H 09/07/16 05:05 Urine Microscopic RBC 5-15 per hpf (0-3) H 09/07/16 05:05 Urine Microscopic WBC 3-5 per hpf (0-3) H 09/07/16 05:05 Ur Squamous Epith Cells Many per lpf (None-Few) H 09/07/16 05:05 Ur Culture Indicated? YES (NO) A 09/07/16 05:05
[2016-09-07] MEDS ORDERED: Magnesium Sulfate 2 GM in D5% in Water 100 ML IVPB ONE (12:03)
--- NOTE | 2016-09-07 14:22 | Electrocardiograph Report ---
[address] [address] Test Date: 2016-09-06 Pat Name: Arcelia Durham Department: 102 Room: 3A45 Gender: F Lpn Rn: : 1940 Requested By: Beatris Sales Order Number: [id number] Reading MD: Stephan Cuellar MD Measurements Intervals Eads Rate: 56 P: 48 HI: 166 QRS: 11 QRSD: 92 T: 8 QT: 418 QTc: 411 Interpretive Statements SINUS BRADYCARDIA Electronically Signed On 09-07-2016 14:20:59 EDT by Stephan Cuellar MD
--- NOTE | 2016-09-07 16:44 | Internal Med Progress Note ---
Date of Encounter: 09/07/16 Time of Encounter: 16:42 - Subjective Interval history: Ms. Durham is a 76 year old female with a past medical history for CAD, CVA back in 1991, actually, HTN, GERD presented with a blurred vision dizziness and right -sided weakness. Symptoms seems to be improving at this point. MRI of the brain is negative for any acute infarct, but did show a remote left frontal is infarct. Echocardiogram showed normal cardiac ejection fraction with normal LV systolic function without any significant wall motion abnormality. Neurology is on this case. sHe takes Plavix at home and aspirin has been added. Patient to magnesium was low which is supplemented. Chest x-ray showed possible pneumonia the patient is asymptomatic and UA shows some leukocytes. I will continue patient with IV Rocephin. has history of prosthetic aortic valve INR is 4.2. Will bring it on and a 3.5. - Constitutional Vitals: Temp Pulse Resp BP Pulse Ox 98.2 F 57 14 125/72 96 09/07/16 15:03 09/07/16 15:15 09/07/16 15:15 09/07/16 15:15 09/07/16 15:15 General appearance: Present: cooperative, A&O X 3, pleasant, no acute distress, obese, answers questions appropriately - Head Head exam: Present: atraumatic, normocephalic - Eye Eye exam: Present: PERRL, conjuntiva pink, sclera anicteric Pupils: Present: PERRL - Neck Neck exam general surgery: Present: supple, trachea midline. Absent: lymphadenopathy - Respiratory Respiratory exam: Present: CTAB. Absent: accessory muscle use, rales, rhonchi, wheezes - Cardiovascular Cardiovascular exam: Present: RRR, +S1, +S2. Absent: diastolic murmur, gallop, rubs, systolic murmur - GI/Abdominal GI/Abdominal exam: Present: normal bowel sounds, soft, no peritoneal signs. Absent: distended, tenderness - Extremities Exam Extremities exam: Present: warm, radial pulses palpable and symetrical. Absent : calf tenderness, cyanotic, pedal edema - Neurological Exam Neurological exam: Present: CN II-XII intact, oriented X3, no focal deficits. Absent: pronater drift, facial droop, speech deficit - Skin Skin exam: Present: dry, intact Additional comments: Mild right-sided distal weakness. Detailed examination of neurology Internal Medicine: Result - Labs CBC & Chem 7: 09/07/16 05:56 09/07/16 05:56 Labs: Short CBC 09/07/16 Range/Units 05:56 WBC 7.6 (4.3-11.1) K/mcL Hgb 12.9 (11.5-15.4) g/dL Hct 40.2 (35.3-44.9) % Plt Count 194 (140-400) K/mcL Neutrophils # 5.1 (1.6-8.9) K/mcL BMP 09/07/16 05:56 Sodium 141 Potassium 3.6 Chloride 102 Carbon Dioxide 31 H BUN 12 Creatinine 0.90 Glucose 94 Calcium 9.8 Cardiac Enzymes 09/06/16 09/07/16 Range/Units 21:47 05:56 Troponin I 0.01 0.02 (0-0.03) ng/mL Liver Function 09/07/16 Range/Units 05:56 Total Bilirubin 1.2 (0.2-1.2) mg/dL AST 20 (5-34) Units/L ALT 12 (0-55) Units/L Alkaline Phosphatase 71 (38-126) Units/L Albumin 3.7 (3.5-5.0) g/dL Urine 09/07/16 Range/Units 05:05 Urine Color Yellow (Yellow) Urine Clarity Clear (Clear) Urine pH 6.0 (5.0-8.0) pH Units Ur Specific [place] 1.021 (1.010-1.025) Urine Protein Negative (Neg-Trace) mg/dL Urine Glucose (UA) Normal (Normal) mg/dL - ABG Interpretation ABG results: PT/INR, D-dimer PT 11.9 Seconds (9.4-12.1) 09/07/16 05:56 D-Dimer 421 ng/mLFEU (0-500) 09/06/16 21:47 Consult Discharge Plan - Plan Referrals: Karolina Allen CNP [Primary Care Provider] - 09/15/16 11:00 am
[2016-09-07] MEDS ORDERED: Azithromycin 500 MG in D5% in Water 250 ML IVPB SCH (22:00)
[2016-09-08 05:16] LABS: Basophils % 0.3 %; Eosinophils # 0.5 K/mcL (0.0-0.6); Eosinophils % 7.9 %; Hematocrit 40.1 % (35.3-44.9); Hemoglobin 12.5 g/dL (11.5-15.4); Immature Granulocytes % 0.5 % (0-4); Lymphocytes # 1.7 K/mcL (0.6-4.6); Lymphocytes % 29.4 %; Mean Corpuscular HGB Conc 31.2 g/dL (31.6-35.5); Mean Corpuscular Hemoglobin 28.9 pg (28.0-33.3); Mean Corpuscular Volume 92.6 fL (83.0-100.0); Mean Platelet Volume 11.3 fL (9.4-12.4); Monocytes # 0.5 K/mcL (0.0-1.3); Monocytes % 7.9 %; Neutrophils # 3.1 K/mcL (1.6-8.9); Platelet Count 181 K/mcL (140-400); Red Blood Count 4.33 M/mcL (3.82-4.97); Red Cell Distribution Width 14.5 % (11.5-14.5)
[2016-09-08 05:35] LABS: Alanine Aminotransferase 11 Units/L (0-55); Albumin 3.5 g/dL (3.5-5.0); Albumin/Globulin Ratio 1.3 (1.1-2.2); Alkaline Phosphatase 64 Units/L (38-126); Aspartate Amino Transferase 20 Units/L (5-34); BUN/Creatinine Ratio 12 (6-26); Bilirubin,Total 1.2 mg/dL (0.2-1.2); Blood Urea Nitrogen 10 mg/dL (7-20); Calcium 9.7 mg/dL (8.6-10.8); Carbon Dioxide 29 mEq/L (19-29); Chloride 103 mEq/L (98-109); Globulin 2.7 g/dL (2.4-3.5); Glucose 96 mg/dL (70-99); Osmolality,Calculated 293 (280-300); Potassium 3.4 mEq/L (3.5-4.5); Sodium 142 mEq/L (136-145); Total Protein 6.2 g/dL (6.0-8.3); eGFR For African Americans > 60 (> 60); eGFR For Non-African Americans > 60 (> 60)
[2016-09-08] MEDS: *HR* Enoxaparin 40 MG/0.4 ML SYRINGE SQ SCH (06:19)
--- NOTE | 2016-09-08 07:12 | Carotid Imaging Report ---
Carotid Duplex Patient Name:Arcelia Durham Order Number:[id number] Procedure Date:09/07/2016 Date:3Age:76 yrs Gender:Female Lt BP:156 / 80 mmHg Rt.BP:150 / 76 mmHgHeart Rate: Location:[facility] Room #: 3A45 Taxi Driver:Suri Fay Referring MD:Tony Britt CNP clinical support specialist:Karolina Allen CNP Reading MD:Chung Sharp MD Risk Factors Yes/No Hypertension Yes Hypercholesterolemia Yes Smoker Previous Yes Impressions: The right internal carotid artery has a 60-79% stenosis. The left carotid artery bifurcation has a 60-79% stenosis. The left internal carotid artery has a 40-59% stenosis. Recommendations: Risk factor reduction. Further evaluation recommended if clinically indicated. Follow-up carotid duplex in 1 year. After imaging the patient returned to their room. Findings Carotid Duplex: Right: The right proximal common carotid artery has a PSV of 50 cm/s and a EDV of 13 cm/s. The right mid common carotid artery has a PSV of 57 cm/s and a EDV of 14 cm/s. The right distal common carotid artery has a PSV of 54 cm/s and a EDV of 14 cm/s. The right bifurcation has a PSV of 48 cm/s and a EDV of 15 cm/s. There is 60-79% stenosis in the right proximal internal carotid artery with a PSV of 179 cm/s and a EDV of 59 cm/s. There is irregular heterogeneous plaque. There is 40-59% stenosis in the right mid internal carotid artery with a PSV of 133 cm/s and a EDV of 32 cm/s. There is smooth heterogeneous plaque. The right distal internal carotid artery has a PSV of 73 cm/s and a EDV of 22 cm/s. The right eca has a PSV of 55 cm/s and a EDV of 8 cm/s. The right vertebral artery has a PSV of 45 cm/s and a EDV of 11 cm/s. Left: The left proximal common carotid artery has a PSV of 89 cm/s and a EDV of 25 cm/s. The left mid common carotid artery has a PSV of 87 cm/s and a EDV of 22 cm/s. The left distal common carotid artery has a PSV of 95 cm/s and a EDV of 27 cm/s. There is 60-79% stenosis in the left bifurcation with a PSV of 140 cm/s and a EDV of 48 cm/s. There is irregular heterogeneous plaque. There is 40-59% stenosis in the left proximal internal carotid artery with a PSV of 154 cm/s and a EDV of 39 cm/s. There is smooth heterogeneous plaque. There is nonstenotic plaque in the left mid internal carotid artery with a PSV of 81 cm/s and a EDV of 27 cm/s. There is smooth heterogeneous plaque. The left distal internal carotid artery has a PSV of 101 cm/s and a EDV of 35 cm/s. The left eca has a PSV of 102 cm/s and a EDV of 25 cm/s. The left vertebral artery has a PSV of 55 cm/s and a EDV of 13 cm/s. Carotid Results Right PSV EDV Assessment Proximal CCA 50 13 Normal Mid CCA 57 14 Normal Distal CCA 54 14 Normal Bifurcation 48 15 Normal Proximal ICA 179 59 60-79% stenosis Mid ICA 133 32 40-59% stenosis Distal ICA 73 22 Normal ECA 55 8 Normal Vertebral Artery 45 11 Normal Left PSV EDV Assessment Proximal CCA 89 25 Normal Mid CCA 87 22 Normal Distal CCA 95 27 Normal Bifurcation 140 48 60-79% stenosis Proximal ICA 154 39 40-59% stenosis Mid ICA 81 27 Non Stenotic Plaque Distal ICA 101 35 Normal ECA 102 25 Normal Vertebral Artery 55 13 Normal Ratio's Right ICA/CCA Ratio: 3.14 ICA/CCA Values: 179/57 Left ICA/CCA Ratio: 1.80 ICA/CCA Values: 154/87 Updated by Chung Sharp MD on 09/08/2016 7:07:56 AM electronically signed on 09/08/2016 7:08:24 AM with status of Final
[2016-09-08] MEDS: Aspirin Enteric Coated 81 MG Tablet PO SCH (07:53)
[2016-09-08] MEDS: FLUoxetine 20 MG CAPSULE PO SCH (07:53)
[2016-09-08] MEDS: Vitamin B Complex/Vit C/Vit E 1 EACH TABLET PO SCH (07:53)
[2016-09-08] MEDS: (Lutein [Natural Lutein] 20 MG) PO SCH (07:54)
[2016-09-08] MEDS: Budesonide/Formoterol 160/4.5 MDI IH SCH (09:36)
[2016-09-08 11:17] VITALS: BP 137/60
--- NOTE | 2016-09-08 13:54 | Discharge Summary ---
Date of Encounter: 09/08/16 Time of Encounter: 13:50 - Discharge Diagnosis (1) HTN (hypertension) Priority: Secondary Status: Chronic Qualifiers: Hypertension type: essential hypertension Qualified Code(s): I10 - Essential (primary) hypertension (2) Hyperlipidemia Priority: Secondary Status: Chronic Qualifiers: Hyperlipidemia type: unspecified Qualified Code(s): E78.5 - Hyperlipidemia , unspecified (3) Pneumonia Priority: Secondary Status: Acute Qualifiers: Pneumonia type: due to Pneumococcus Laterality: left Lung location: lower lobe of lung Qualified Code(s): J13 - Pneumonia due to Streptococcus pneumoniae (4) CVA (cerebral vascular accident) Priority: Primary Status: Acute Qualifiers: CVA mechanism: unspecified Qualified Code(s): I63.9 - Cerebral infarction, unspecified - Discharge Medications Prescriptions: Cefuroxime PO [Ceftin] 500 mg PO Q12HR #28 tablet Home Medications: Aspirin Enteric Coated [Aspirin EC] 81 mg PO DAILY tablet. 01/18/16 [Rx] Atenolol [Tenormin] 50 mg PO DAILY tablet 01/18/16 [Rx] Clopidogrel [Plavix] 75 mg PO DAILY tablet 01/18/16 [Rx] FLUoxetine HCl [Prozac] 20 mg PO DAILY capsule 01/18/16 [Rx] Vitamin B Complex/Vit C/Vit E [Stresstab] 1 each PO DAILY tablet 01/18/16 [Rx] hydroCHLOROthiazide [Hydrochlorothiazide] 12.5 mg PO DAILY tablet 01/18/16 [Rx] Albuterol Sulfate [Ventolin Hfa] 2 puff IH Q4H PRN 09/06/16 [History] Budesonide/Formoterol 160/4.5 [Symbicort 160/4.5] 2 puff IH BIDR 09/06/16 [ History] Lutein [Natural Lutein] 20 mg PO DAILY 09/06/16 [History] Pantoprazole Sodium [Protonix] 40 mg PO DAILY 09/06/16 [History] Simvastatin [Zocor] 80 mg PO HS 09/06/16 [History] Acetaminophen [Tylenol] 650 mg PO Q6HR PRN #0 tablet 09/08/16 [Rx] Cefuroxime PO [Ceftin] 500 mg PO Q12HR #28 tablet 09/08/16 [Rx] Rosuvastatin [Crestor] 20 mg PO HS tablet 09/08/16 [Rx] Allergies/Adverse Reactions: Allergies No Known Allergies Allergy (Verified 10/19/15 11:59) Procedures/tests Complete & Pending: Procedures Performed prior 72 hours Category Date Time Status EV carotid duplex imaging BI Stat Y 09/07/16 21:05 Completed EV echocardiogram Stat Y 09/07/16 21:04 Completed Date of admission: 09/06/16 18:06 Primary care physician: Karolina Allen CNP Consults: 09/06/16 21:11 Consult to Physical Therapy [CONS] Routine Comment: Evaluate, develop and implement POC Reason for Consult: Patient has history of CVA and episodes of dizziness and unsteady gait 09/06/16 21:12 Consult to Occupational Therapy [CONS] Routine Comment: Evaluate, develop and implement POC Reason for Consult: Patient has history of CVA and episodes of dizziness and unsteady gait 09/06/16 22:40 Consult to Neurology [CONS] Routine Consulting Provider: [facility] Reason for Consult: Vertigo Call Completed: No Discharging clinician: Jennie Lim Anticipated date of discharge: 09/08/16 - Patient Status Disposition: Home, Self-Care Overall status at discharge: patient is back to baseline - Discharge Instructions Follow Up With: Karolina Allen CNP [Primary Care Provider] - 09/15/16 11:00 am Forms: ED Satisfaction Letter - Diet and Activity Activity: increase activity as tolerated Diet: advance to your usual diet Interval History: Ms. Durham is a 76 year old female with a past medical history for CAD, CVA back in 1991, actually, HTN, GERD presented with a blurred vision dizziness and right -sided weakness. Symptoms seems to have resolved at this point. Patient does not have any blurring of vision or difficulty in vision and has strength on the right side has returned back to normal. Speech normal she tolerates full diet without any difficulty and he started ambulating. Usually feels woozy when she ambulates but this symptom has been related to her previous CVA which happened 25 years ago.. MRI of the brain is negative for any acute infarct, but did show a remote left frontal is infarct. Echocardiogram showed normal cardiac ejection fraction with normal LV systolic function without any significant wall motion abnormality. Neurology was consulted. sHe takes Plavix at home and aspirin has been added. Patient magnesium was low which is supplemented. Chest x-ray showed possible pneumonia but patient is asymptomatic and UA shows some leukocytes but urine culture is negative. I will continue patient with IV Rocephin and later Ceftin upon discharge. Hospital course: Ms. Durham is a 76 year old female - Time Spent with Patient Total time spent providing and/or coordinating discharge services: Greater than 30 minutes - Constitutional Vitals: Temp Pulse Resp BP Pulse Ox 97.9 F 58 16 137/60 96 09/08/16 11:13 09/08/16 11:13 09/08/16 11:13 09/08/16 11:13 09/08/16 11:13 General appearance: Present: cooperative, A&O X 3, pleasant, no acute distress, obese, answers questions appropriately - Head Head exam: Present: atraumatic, normocephalic - Eye Eye exam: Present: PERRL, conjuntiva pink, sclera anicteric Pupils: Present: PERRL - Neck Neck exam general surgery: Present: supple, trachea midline. Absent: lymphadenopathy - Respiratory Respiratory exam: Present: CTAB. Absent: accessory muscle use, rales, rhonchi, wheezes - Cardiovascular Cardiovascular exam: Present: RRR, +S1, +S2. Absent: diastolic murmur, gallop, rubs, systolic murmur - GI/Abdominal GI/Abdominal exam: Present: normal bowel sounds, soft, no peritoneal signs. Absent: distended, tenderness - Extremities Exam Extremities exam: Present: warm, radial pulses palpable and symetrical. Absent : calf tenderness, cyanotic, pedal edema - Neurological Exam Neurological exam: Present: CN II-XII intact, oriented X3, no focal deficits. Absent: pronater drift, facial droop, speech deficit Additional comments: Strength is equal and within normal range as well as DTR and patient is ambulating well speech is normal vision is normal seems like she is back to baseline - Skin Skin exam: Present: dry, intact
== END 2016-09-08 16:53 | disposition home or self-care (01) ==
LOC: 3ANU 15:14 → EMEROO 15:14 → 3ANU 18:31
PROVIDERS: ADMIT Registered Nurse; ATTEND Internal Medicine